=== PATIENT | female | born 1960 | race Two or more races ===

== ENCOUNTER 2018-01-10 16:36 | Emergency (ER) | payer MEDICAID ==
[~2018-01-10] VITALS: Ht 154.9 cm; Wt 81.6 kg
[~2018-01-10 16:36] MED LIST: ASPI81CH49 PO; INSUINJ37 SC; LISI10TA6 PO; METF-370 PO; PRAVASTATIN SODIUM PO
[2018-01-10 17:00] VITALS: BP 156/88
[2018-01-10] MEDS ORDERED: KETOROLAC TROMETH 60MG/2ML VIAL IM ONE (18:00)
[2018-01-10] MEDS ORDERED: ONDANSETRON ODT 4 MG TAB PO ONE (18:00)
== END 2018-01-10 18:38 | disposition home or self-care (01) ==
LOC: ER 16:39
DX: S09.90XA Unspecified injury of head, initial encounter (principal); E11.9 Type 2 diabetes mellitus without complications; I10 Essential (primary) hypertension; Z79.4 Long term (current) use of insulin; Z79.82 Long term (current) use of aspirin; W22.8XXA Striking against or struck by other objects, initial encounter; Y93.89 Activity, other specified; Y92.89 Other specified places as the place of occurrence of the external cause; Y99.8 Other external cause status
CPT/HCPCS: 70450; 96372; 99284; J1885; Q0162